=== PATIENT | male | born 1955 | race Hispanic/Latino ===

== ENCOUNTER 2024-07-27 06:30 | Day surgery (SDC) | payer MEDICARE ==
[2024-07-23 12:44] LABS: BASOPHILS # (AUTO) 0.06 K/uL (0.00-0.20); BASOPHILS % (AUTO) 1.2 % (0.0-5.0); EOSINOPHILS # (AUTO) 0.22 K/uL (0.00-0.70); EOSINOPHILS % (AUTO) 4.4 % (0.0-8.0); IMMATURE GRANULOCYTE ABSOLUTE 0.01 K/uL (0-1); LYMPHOCYTES # (AUTO) 0.8 K/uL (1.0-4.8); LYMPHOCYTES % (AUTO) 16.9 % (21.0-51.0); MEAN CORPUSCULAR HEMOGLOBIN 30.9 pg (27.0-33.0); MEAN CORPUSCULAR HGB CONC 34.2 g/dL (32.0-36.0); MEAN CORPUSCULAR VOLUME 90.3 fL (79-99); MONOCYTES # (AUTO) 0.6 K/uL (0.1-1.0); MONOCYTES % (AUTO) 11.7 % (3.0-13.0); NEUTROPHILS # (AUTO) 3.3 K/uL (1.8-7.7); NEUTROPHILS % (AUTO) 65.6 % (40.0-77.0); PLATELET COUNT (AUTO) 192 K/uL (130-400); RED BLOOD CELL COUNT(AUTO) 4.21 MIL/uL (4.50-6.20); RED CELL DISTRIBUTION WIDTH 13.5 % (11.0-15.5)
[2024-07-23 12:55] LABS: INR 0.98 (0.85-1.15)
[2024-07-23 12:57] LABS: PARTIAL THROMBOPLASTIN TIME 25.8 SEC (26.3-35.5)
[2024-07-23 12:59] LABS: ALBUMIN 3.8 g/dL (3.5-5.0); BILIRUBIN,TOTAL 0.5 mg/dL (0.2-1.0); CREATININE 2.1 mg/dL (0.5-1.3); POTASSIUM 5.8 mmol/L (3.5-5.1); TOTAL PROTEIN, SERUM 7.3 g/dL (6.0-8.3)
[2024-07-23 13:38] VITALS: BP 141/65; PULSE 71; RESP 18; TEMP 99.1
--- NOTE | 2024-07-23 13:46 | EKG ---
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
--- NOTE | 2024-07-26 09:11 | NUR ---
ABNORMAL LAB: DR JOHN MADE AWARE OF POTASSIUM 5.8 AND CREATINE 2.1, PT NOT ON DIALYSIS. ORDERS GIVEN TO REPEAT POTASSIUM IN AM.
[~2024-07-27] VITALS: Ht 165.1 cm; Wt 91.4 kg
[2024-07-27] VITALS (16 sets, daily range): BP systolic 126–169; BP diastolic 69–85; PULSE 80–99; RESP 14–18; TEMP 97.1–98.1
[~2024-07-27 06:30] MED LIST: ALLO100T PO; ERGO500093 PO; INSU3INS5 SQ; IRBE75TA16 PO; LEVO100C4 PO; MEROPENEM 1GM 1 GM VIAL ONE; MESA0.37 PO; MESA4ENE4 RC; OMEP40CA21 PO; ONDA-245 PO; ROSU40 PO; TAMS-1 PO; TEST200V21 IM
[2024-07-27] MEDS ORDERED: rocuRONium bROMide 10MG/1ML 5ML VL ONE ×2 (07:19→08:46)
[2024-07-27] MEDS ORDERED: MIDAZOLAM HCL 1 MG/ML 2ML VIAL ONE (07:19)
[2024-07-27] MEDS ORDERED: LIDOCAINE PF 100MG/5ML (2%) SYRINGE 5ML ONE (07:19)
[2024-07-27] MEDS ORDERED: dexaMETHasone SOD PHOSPHATE 4 MG/ML 1ML VIAL ONE (07:19)
[2024-07-27] MEDS ORDERED: proPOFol 10 MG/ML 20ML VIAL IV ONE (07:19)
[2024-07-27] MEDS ORDERED: ondanSETRON 4MG INJ ONE (07:19)
[2024-07-27] MEDS ORDERED: FENTanyl CITRate PF 50 MCG/1 ML 2ML VIAL ONE ×2 (07:19→08:53)
[2024-07-27] MEDS ORDERED: phenylEPHRINE HCL 10 MG/ML 1ML VIAL IV ONE (07:21)
[2024-07-27] MEDS ORDERED: LIDOCAINE 1%-EPI 1:100,000 20 ML VIAL ONE ×2 (07:45→08:39)
[2024-07-27] MEDS ORDERED: BUPIvacaine/PF 0.5% 30ML VIAL ONE (07:45)
[2024-07-27] MEDS: ceFAZolin SODIUM 2 GM VIAL IVPB ONE (08:21)
[2024-07-27] MEDS ORDERED: GLYCOPYRROLATE 0.2 MG/ML 5 ML VIAL ONE (08:53)
[2024-07-27] MEDS ORDERED: NEOSTIGMINE METHYLSULFATE 1MG/ML IV ONE (08:53)
--- NOTE | 2024-07-27 10:13 | OP ---
Operative Note: DATE OF PROCEDURE: 07/27/24 SURGEON: PARRIS GUILLEN MD CLAY MIXER: [None] ANESTHESIA: [General plus local] PREOPERATIVE DIAGNOSIS: [Endoscopically unresectable rectal polyp.] POSTOPERATIVE DIAGNOSIS: [Same] SYNOPSIS: [Endoscopically unresectable polyp of the mid rectum] PROCEDURE: [Transanal robotic assisted, laparoscopic, transanal excision of rectal polyp.] ESTIMATED BLOOD LOSS: [None.] INDICATIONS: [This is a 69-year-old male who presents with a large flat rectal polyp that is not endoscopically resectable. After assessment and discussion with the patient he was advised to undergo a transanal excision we will order indicated procedures. Risks were abrasions and alternatives were explained in detail to the patient who granted consent.] DESCRIPTION OF PROCEDURE: [The patient was identified in the holding area transferred to the OR placed supine on the operative table. Venodyne boots were placed for DVT prophylaxis. IV antibiotics were given within the hour of the incision. After general anesthesia was obtained he was placed in lithotomy position with great care taken to pad all pressure points. Anal block was given with 1% lidocaine and 0.25% Marcaine with epinephrine. Afterwards a [place] r etractor placed and GelPOINT path port was placed. Trocars were placed in the standard fashion and the Scott excised was docked. Space was very limited in this particular patient so the decision was made to undock the robot at this point and proceed with a transanal incision via laparoscopic surgery. The polyp was identified and it was dissected full-thickness with a microscopic negative margin. This was done with the LigaSure device. It was passed to the back table as specimen. Careful irrigation revealed excellent hemostasis. We assessed the surgical bed noted to be too wide for primary closure. It was well contained within the mesorectum was this was a posterior lesion. The no residual polyp was identified. Having completed this a steps, counts were done and correct, longstanding and port were removed. Sterile dressing was applied. There were no complications. I was present and scrubbed for the entire case.] PARRIS FIELDS MD Jul 27, 2024 10:13
[2024-07-27] MEDS ORDERED: SUGAMMADEX SODIUM 200 MG/2 ML VIAL IV ONE (10:23)
[2024-07-27] MEDS: MEPERIDINE-PF 50 MG/ML SYG ONE (10:49)
--- NOTE | 2024-07-27 11:47 | NUR ---
Full and complete Discharge Instructions given to Patient and Family both verbally and in writing.. All questions answered. Voiced understanding to Surgical precautions and Follow Up. PIV removed with catheter tip intact. Denies c/o pain or discomfort. Encouraged turn cough deep breaths along with fluids. Ambulated to Bathroom where voided large amount. D/C'd W/C to POV with Family to Home.
== END 2024-07-27 11:48 | disposition home or self-care (01) ==
LOC: DAH 06:30
PROVIDERS: ATTEND Surgery
DX: D12.8 Benign neoplasm of rectum (principal); I10 Essential (primary) hypertension; K21.9 Gastro-esophageal reflux disease without esophagitis; E78.00 Pure hypercholesterolemia, unspecified; K51.50 Left sided colitis without complications; K42.9 Umbilical hernia without obstruction or gangrene; R93.41 Abnormal radiologic findings on diagnostic imaging of renal pelvis, ureter, or bladder; D69.8 Other specified hemorrhagic conditions; K44.9 Diaphragmatic hernia without obstruction or gangrene; K29.00 Acute gastritis without bleeding; E55.9 Vitamin D deficiency, unspecified; N28.9 Disorder of kidney and ureter, unspecified; M43.10 Spondylolisthesis, site unspecified; E11.9 Type 2 diabetes mellitus without complications; E03.9 Hypothyroidism, unspecified; Z88.1 Allergy status to other antibiotic agents; Z79.01 Long term (current) use of anticoagulants; Z79.899 Other long term (current) drug therapy
CPT/HCPCS: 80053; 85025; 85610; 85730; 36415 ×2; 93005; 45499; 84132; 82948 ×2; 88305; A6260; J1100; A4663; J7030; J7120; A4344; J3010 ×2; J3490 ×6; J2003; J2250; J2704; J2405; J2710; J0665 ×2; J2175; J2371; J2185; J0690; A4649 ×3; A4930; A4215; A4222; A4221; A4216; A4223 ×2; A4600